=== PATIENT | female | born 1950 | race Caucasian/White ===

== ENCOUNTER 2019-01-28 16:12 | Emergency (ER) | payer MEDICARE, OTHER ==
[~2019-01-28] VITALS: Ht 154.9 cm; Wt 72.6 kg
[~2019-01-28 16:12] MED LIST: CELE100; CHOL10002; MECL25 PO; PROM25 PO; Pravachol40 MG; UBID10
[2019-01-28 17:39] LABS: BASOPHILS ABSOLUTE AUTO 0.09 K/mm3 (0.00-0.23); BASOPHILS PERCENT AUTO 1 % (0-2); EOSINOPHILS ABSOLUTE AUTO 0.12 K/mm3 (0.00-0.68); EOSINOPHILS PERCENT AUTO 1 % (0-6); Hematocrit 45.5 % (33.0-51.0); Hemoglobin 14.2 g/dL (11.5-16.0); IMMATURE GRAN ABSOLUTE AUTO 0.04 K/mm3 (0.00-0.10); IMMATURE GRAN PERCENT AUTO 0 % (0-1); LYMPHOCYTES ABSOLUTE AUTO 3.74 K/mm3 (0.84-5.20); LYMPHOCYTES PERCENT AUTO 30 % (21-46); MONOCYTES ABSOLUTE AUTO 0.93 K/mm3 (0.16-1.47); MONOCYTES PERCENT AUTO 8 % (4-13); Mean Corpuscular HGB 28.6 pg (26.0-34.0); Mean Corpuscular HGB Conc 31.2 g/dL (31.5-36.5); Mean Corpuscular Volume 92 fL (80-100); Mean Platelet Volume 9.7 fL (9.1-12.4); NEUTROPHILS ABSOLUTE AUTO 7.55 K/mm3 (1.96-9.15); NEUTROPHILS PERCENT AUTO 61 % (41-73); Platelet Count 377 K/mm3 (150-400); RDW Coefficient Variation 13.9 % (11.7-14.2); RDW Standard Deviation 47.4 fL (35.1-46.3); Red Blood Cell Count 4.96 M/mm3 (3.80-5.20); White Blood Cell Count 12.47 K/mm3 (4.00-11.30)
[2019-01-28 17:57] LABS: Alanine Aminotransfer (ALT/SGP 16 U/L (12-78); Albumin, Blood 3.6 g/dL (3.4-5.0); Albumin/Globulin Ratio 0.9 (0.8-1.8); Alk Phos 86 U/L (50-136); Anion Gap 7 mmol/L (6-16); Aspartate Aminotrans (AST/SGOT 13 U/L (12-37); Bilirubin, Total 0.3 mg/dL (0.1-1.0); Blood Urea Nitrogen 23 mg/dL (8-24); Bun/Creatinine Ratio 20.9 (12.0-20.0); CO2, Blood 27 mmol/L (21-32); Calcium, Blood 9.1 mg/dL (8.5-10.1); Chloride, Blood 105 mmol/L (98-108); Globulin, Blood 4.1 g/dL (2.2-4.0); Glomerular Filtration Rate 52 (60-); Glucose, Blood 90 mg/dL (70-99); Potassium, Blood 3.8 mmol/L (3.5-5.5); Sodium, Blood 139 mmol/L (136-145); Total Protein, Blood 7.7 g/dL (6.4-8.2); Troponin I <0.015 ng/mL (0.000-0.040)
== END 2019-01-28 20:10 | disposition home or self-care (01) ==
LOC: ER 16:12
PROVIDERS: Physician Assistant
DX: R07.9 Chest pain, unspecified (principal); E78.5 Hyperlipidemia, unspecified; F17.200 Nicotine dependence, unspecified, uncomplicated; Z88.2 Allergy status to sulfonamides; Z88.0 Allergy status to penicillin; Z79.899 Other long term (current) drug therapy
CPT/HCPCS: 36415; 71046; 80053; 84484; 85025; 93005; 93010; 99285-25

== ENCOUNTER 2019-04-05 12:50 | Emergency (ER) | payer MEDICARE, OTHER ==
[~2019-04-05] VITALS: Ht 154.9 cm; Wt 77.1 kg
[2019-04-05] MEDS ORDERED: CHOL10002 PO (13:34)
[2019-04-05] MEDS ORDERED: Pravachol80 MG PO (13:35)
[2019-04-05] MEDS ORDERED: Zofran8 MG PO (16:31)
[2019-04-05] MEDS ORDERED: Percocet 5-3251 EACH PO (16:31)
[2019-04-09] MEDS ORDERED: ALBU90OI INH (10:54)
[2019-04-09] MEDS ORDERED: Reclast 55 MG/100 M IV (10:54)
[2019-04-09] MEDS ORDERED: ACET500 PO (11:38)
== END 2019-04-05 22:04 | disposition home or self-care (01) ==
LOC: ER 12:50
DX: S82.851A Displaced trimalleolar fracture of right lower leg, initial encounter for closed fracture (principal); W18.30XA Fall on same level, unspecified, initial encounter; Z88.2 Allergy status to sulfonamides; Z88.1 Allergy status to other antibiotic agents; Z79.899 Other long term (current) drug therapy; F17.210 Nicotine dependence, cigarettes, uncomplicated
CPT/HCPCS: 27818; 73590; 73600; 73610; 96361-59; 96374-59; 96375-59; 96376-59; 99284-25; A9270; A9270-GY; J1170; J2405; J2550; J2704; J3010; J7030

== ENCOUNTER 2019-04-13 11:09 | Day surgery (SDC) | payer MEDICARE, OTHER ==
[~2019-04-13] VITALS: Ht 154.9 cm; Wt 71.4 kg
[~2019-04-13 11:09] MED LIST changes: +ACET500 PO; +ALBU90OI INH; +CHOL10002 PO; +Percocet 5-3251 EACH PO; +Pravachol80 MG PO; +Reclast 55 MG/100 M IV; +Zofran8 MG PO
--- NOTE | 2019-04-13 11:40 | NUR ---
History, Chart, Medications and Allergies reviewed before start of procedure. Patient confirms NPO status and agrees with scheduled surgery. Patient States Post-Procedure ride home has been arranged with her son, Kd.
[2019-04-13] MEDS ORDERED: MAGNESIUM400 MG PO (11:51)
--- NOTE | 2019-04-13 12:59 | NUR ---
DR MAO UNWRAPPED BY DR MAO, DARK RED BLISTER NOTED JUST BELOW ANKLE BONE ON THE RIGHT ANKLE. PER INSTRUCTION FROM DR DAYLIN MATUTE ALIGNMENT MAINTAINED VIA SPLINT BASE AND PATIENT LEG, ANKLE AND FOOT PREPPED WITH CHLORHEXIDINE WIPE.
--- NOTE | 2019-04-13 13:18 | NUR ---
REPORT BACK TO Felipa MALDONADO RN TO REASSUME CARE OF PATIENT.
--- NOTE | 2019-04-13 19:00 | NUR ---
PT WAS D/C TO HOME WITH D SON AND DAUGHTER IN LAW. DAUGHTER IN LAW VERBALIZED UNDERSTANDING OF D/C INSTRUCTIONS. PT WAS WIGGLING TOES WITH OUT PROBLEM CAP REFILL WAS WNL CAST /JOELLE WRAP INTACT PAIN AT 2/10 AND DENIES NAUSEA
--- NOTE | 2019-04-14 07:20 | NUR ---
04/14/19 0720 Shelby Sims VERIFICATIONS: EDIT CHART.
== END 2019-04-13 22:40 | disposition home or self-care (01) ==
LOC: ORSCMMR 11:09 → ORD 12:30 → ORSCMMR 12:30
PROVIDERS: Orthopaedic Surgery
PROC: 0QSG04Z Reposition Right Tibia with Internal Fixation Device, Open Approach (ICD-10-PCS; principal; 2019-04-13 12:30)
PROC: 0QSJ04Z Reposition Right Fibula with Internal Fixation Device, Open Approach (ICD-10-PCS; principal; 2019-04-13 12:30)
DX: S82.851A Displaced trimalleolar fracture of right lower leg, initial encounter for closed fracture (principal); J44.9 Chronic obstructive pulmonary disease, unspecified; F17.210 Nicotine dependence, cigarettes, uncomplicated; E78.00 Pure hypercholesterolemia, unspecified; Z79.899 Other long term (current) drug therapy
CPT/HCPCS: C1713; C1769; J0360; J1100; J1885; J2250; J2270; J2405; J2704; J2765; J3010; J3370; J7120

== ENCOUNTER 2020-05-11 08:46 | Day surgery (SDC) | payer MEDICARE, OTHER ==
[~2020-05-11] VITALS: Ht 157.5 cm; Wt 76.0 kg
[~2020-05-11 08:46] MED LIST changes: +ATOR80 PO; +CARV3.125 PO; +Isosorbide Mono30 MG PO; +MAGNESIUM400 MG PO; +NITR.4SL SL
[2020-05-11] MEDS ORDERED: ASPI325 PO (09:36)
--- NOTE | 2020-05-11 13:52 | NUR ---
3mL AIR RELEASED FROM TR BAND. NO BLEDING, OOZING OR HEAMTOMA NOTED. PT DOES REPORT SOME "THROBBING" TO THUMB. WILL CONTINUE TO MONITOR. VSS.
--- NOTE | 2020-05-11 14:00 | NUR ---
TOTAL OF 5mL AIR RELEASED FROM TR BAND. NO BLEEDING, OOZING OR HEMATOMA NOTED. PT WITH LITTLE BRUISING ABOVE TR BAND WHICH IS UNCHANGED FROM BEFORE. WILL CONTINUE TO MONITOR.
--- NOTE | 2020-05-11 14:05 | NUR ---
ALL AIR RELEASED FROM TR BAND. NO BLEEDING, OOZING OR HEMATOMA NOTED. PT DENIES PAIN. VSS. WILL CONTINUE TO MONITOR.
--- NOTE | 2020-05-11 14:23 | NUR ---
PT AMBULATED TO [facility] WITH NO COMPLICATIONS. VSS. NO BLEEDING, OOZING OR HEMATOMA NOTED AT [facility] SITE. WILL CONTINUE TO MONITOR.
--- NOTE | 2020-05-11 15:07 | NUR ---
DISCHARGE PT DRESSED SELF WITH HELP FROM DAUGHTER IN LAW. NO BLEEDING, OOZING OR HEMATOMA NOTED AT [facility] SITE. TR BAND REMOVED, SITE CLEANED, CLOTH DOT DRESSING APPLIED, WHITE BOARD PLACED BACK ON ARM. PT AND DAUGHTER IN LAW STATE THEIR UNDERSTANDING OF DISCHARGE AND SITE CARE INSTRUCTIONS AND BOTH DENY ANY QUESTIONS OR CONCERNS. IV DCD WITH CATH INTACT. PT TAKEN TO EXIT VIA WHEELCHAIR WHERE DAUGHTER IN LAW WAS WAITING WITH CAR. VSS.
== END 2020-05-11 15:10 | disposition home or self-care (01) ==
LOC: MHTC 08:46
PROC: 4A023N7 Measurement of Cardiac Sampling and Pressure, Left Heart, Percutaneous Approach (ICD-10-PCS; principal; 2020-05-11)
PROC: B201YZZ Plain Radiography of Multiple Coronary Arteries using Other Contrast (ICD-10-PCS; principal; 2020-05-11)
DX: I25.118 Atherosclerotic heart disease of native coronary artery with other forms of angina pectoris (principal); I25.82 Chronic total occlusion of coronary artery; E78.5 Hyperlipidemia, unspecified; Z86.73 Personal history of transient ischemic attack (TIA), and cerebral infarction without residual deficits; Z79.899 Other long term (current) drug therapy; Z87.891 Personal history of nicotine dependence; Z88.2 Allergy status to sulfonamides; Z88.0 Allergy status to penicillin; Z88.9 Allergy status to unspecified drugs, medicaments and biological substances; R03.0 Elevated blood-pressure reading, without diagnosis of hypertension
CPT/HCPCS: 76937; 85347; 93458; 99152; 99153; C1769; C1894; J1644; J2250; J2405; J3010; J7030; J7040; Q9967

== ENCOUNTER → 2021-03-18 | Outpatient (CLI) | payer MEDICARE, OTHER ==
[~2021-03-18] MED LIST changes: +ASPI325 PO
== END | disposition home or self-care (01) ==
LOC: LAB SHORT 15:02 → LAB 15:02
DX: R10.13 Epigastric pain (principal)
CPT/HCPCS: 87338

== ENCOUNTER → 2021-11-03 | Outpatient (CLI) | payer MEDICARE | LOC: LAB SHORT 15:57 | DX: N39.0 Urinary tract infection, site not specified (principal) | CPT/HCPCS: 87086 ==

== ENCOUNTER → 2025-08-01 | Outpatient (CLI) | payer MEDICARE, OTHER ==
[2025-08-02 18:09] LABS: Campylobacter Sp Not Detected (NOT DETECT); E. Coli O157 Not Detected (NOT DETECT); Enteroaggregative E. coli-EAEC Not Detected (NOT DETECT); Enteropathogenic E. coli-EPEC Not Detected (NOT DETECT); Enterotoxigenic E. coli-ETEC Not Detected (NOT DETECT); Salmonella Sp Not Detected (NOT DETECT); Shiga Toxin-prod E. coli-STEC Not Detected (NOT DETECT); Shigella/Enteroin E. coli-EIEC Not Detected (NOT DETECT); Vibrio Sp Not Detected (NOT DETECT)
[2025-08-05 13:15] LABS: CALPROTECTIN,FECAL 49 ug/g (<=49)
[2025-08-05 15:04] LABS: PANCREATIC ELASTASE,FECAL >800 ug/g (>=100)
== END ==
LOC: LAB SHORT 11:25 → LAB 11:25
PROVIDERS: Family Medicine
DX: K52.9 Noninfective gastroenteritis and colitis, unspecified (principal)
CPT/HCPCS: 82653; 83993; 87507

== ENCOUNTER → 2025-08-23 | Outpatient (CLI) | payer MEDICARE, OTHER | LOC: LAB SHORT 08:15 → LAB 08:15 → PLD 08:15 | DX: L57.0 Actinic keratosis (principal) | CPT/HCPCS: 88305 ==